=== PATIENT | male | born 1945 | race Caucasian/White ===

== ENCOUNTER → 2016-11-07 | Outpatient (CLI) | payer OTHER, MEDICARE ==
[~2016-11-07] MED LIST: FURO80TA63 PO; GLC500 PO; MODA1TAB PO; SPIR50TA2 PO; [UNRECOGNIZED DRUG - OTHER]
[2016-11-07 13:31] LABS: ESTIMATED AVERAGE GLUCOSE 160 mg/dl; HA1C FLAG Normal (Normal)
[2016-11-07 13:37] LABS: ALKALINE PHOSPHATASE 60 U/L (45-117); ALT/SGPT 83 U/L (12-78); AST/SGOT 53 U/L (15-37); BLOOD UREA NITROGEN 23 mg/dl (7-18); BUN/CREATININE RATIO 16.5 (10-20); CARBON DIOXIDE 27 mmol/L (21-32); CHLORIDE 106 mmol/L (98-107); GLUCOSE 173 mg/dl (70-99); HDL CHOLESTEROL 35 mg/dl; POTASSIUM 4.1 mmol/L (3.5-5.1); SODIUM 141 mmol/L (136-145)
[2016-11-07 13:39] LABS: CHOLESTEROL 137 mg/dl (0-200); CHOLESTEROL/HDL RATIO 3.9; LDL CHOLESTEROL CALCULATED 59 mg/dl; TRIGLYCERIDES 215 mg/dl (0-150); VERY LOW DENSITY LIPOPROT CALC 43 mg/dl
[2016-11-07 13:55] LABS: RATIO 6.2 mcg/mg (0-30.0)
== END | disposition home or self-care (01) ==
LOC: C.LABPVFM 08:24
PROVIDERS: ATTEND Family Medicine
DX: E55.9 Vitamin D deficiency, unspecified (principal); I10 Essential (primary) hypertension; R74.8 Abnormal levels of other serum enzymes; E11.9 Type 2 diabetes mellitus without complications

== ENCOUNTER → 2016-11-17 | Outpatient (CLI) | payer OTHER, MEDICARE ==
--- NOTE | 2016-11-17 10:43 | DIAGNOSTIC IMAGING REPORT ---
ULTRASOUND RIGHT UPPER QUADRANT ABDOMEN CLINICAL HISTORY: Elevated hepatic transaminases. COMPARISON STUDY: Abdominal ultrasound dated 09/03/09. TECHNIQUE: Real-time, grayscale, and color flow sonography of the right upper quadrant of the abdomen was performed. Images are reviewed in the transverse and longitudinal planes. FINDINGS: Liver: The liver is enlarged and demonstrates heterogeneously increased echotexture consistent with severe hepatic steatosis. Note that this degrades acoustic penetration of the liver. Foci of fatty sparing are seen adjacent to gallbladder fossa. There is no intrahepatic biliary ductal dilatation. The main portal vein is patent. Gallbladder: The gallbladder is normal in appearance. No gallstones are identified. There is no gallbladder wall thickening or pericholecystic fluid. A sonographic Olea's sign is reportedly absent. The common bile duct measures up to 0.4 cm in diameter. Pancreas: Visualized portions of the pancreatic head and body are normal in appearance. Right kidney: Survey images of the right kidney demonstrate normal size and echotexture. There is no hydronephrosis. Ascites: None. IMPRESSION: 1. Hepatomegaly and severe hepatic steatosis. 2. No gallstones are identified. Electronically signed by: Samm Holly M.D. 11/17/2016 10:41 AM Dictated Date/Time: 11/17/2016 10:40 AM
== END | disposition home or self-care (01) ==
LOC: C.ULTR 09:46
PROVIDERS: ATTEND Family Medicine
DX: R74.8 Abnormal levels of other serum enzymes (principal)

== ENCOUNTER → 2016-12-12 | Outpatient (CLI) | payer OTHER, MEDICARE ==
--- NOTE | 2016-12-12 10:06 | DIAGNOSTIC IMAGING REPORT ---
CHEST CT WITHOUT CONTRAST CT DOSE: 724.51 mGy.cm HISTORY: Lung nodule R91.1 Pulmonary nodule, left chest no contrast in 6 [id number] TECHNIQUE: Multiaxial CT images of the chest were performed without contrast. COMPARISON: 03/24/2016 FINDINGS: The lungs are clear. The mediastinal vascular structures are within normal limits. No mediastinal or hilar lymphadenopathy. No pleural effusion or pneumothorax. Limited views of the upper abdomen demonstrate a normal liver and spleen. On the micron nodularity seen bilaterally is nonprogressive and stable. There are no new or interval nodules. IMPRESSION: Stable bilateral micronodularity. No new or progressive lesions. Follow-up per Fleischner criteria. Please refer to below summary of Fleischner criteria recommendations for follow-up of incidental CT nodules (Janny Conrad, Guidelines for management of small pulmonary nodules detected on CT scans: A statement from the Fleischner Society, Radiology 237: [phone].) SOLID NODULES Solitary nodule size: <6 mm * low risk patients: no follow-up needed * high risk patients: optional CT at 12 months Solitary nodule size: 6-8 mm * low risk patients: follow-up at 6-12 months, then consider further follow-up at 18-24 months * high risk patients: initial follow-up CT at 6-12 months and then at 18-24 months if no change Solitary nodule size: >8 mm * either low or high risk patients - consider follow-up CT at 3 months, and/or CT-PET, and/or biopsy Multiple nodules size: <6 mm * low risk patients: no routine follow-up * high risk patients: optional CT at 12 months Multiple nodules size: 6-8 mm * low risk patients: follow-up at 3-6 months, then consider further follow-up at 18-24 months * high risk patients: follow-up at 3-6 months, then at 18-24 months if no change Multiple nodules size: >8 mm * low risk patients: follow-up at 3-6 months, then consider further follow-up at 18-24 months * high risk patients: follow-up at 3-6 months, then at 18-24 months if no change Note: newly detected indeterminate nodule in persons 35 years of age or older. * Low risk patients: minimal or absent history of smoking and/or other known risk factors * high risk patients: history of smoking or of other known risk factors (e.g. first degree relative with lung cancer, or exposure to asbestos, radon, uranium) * if a nodule up to 8 mm is partly solid or is ground glass further follow-up is required after 24 months to exclude possible slow growing adenocarcinoma (YURI) SUBSOIL NODULES Solitary pure ground-glass nodule * nodule size <6 mm - no CT follow-up required * nodule size >=6 mm - follow-up CT at 6-12 months, then every 2 years until 5 years Solitary part-solid nodule * nodule size <6 mm - no CT follow-up required * nodule size >=6 mm - follow-up CT at 3-6 months. If unchanged, and solid component remains <6 mm, then annual follow-up for 5 years Multiple subsolid nodules * nodule size <6 mm - follow-up CT at 3-6 months, consider further follow-up at 2 and 4 years if stable * nodule size >=6 mm - follow-up CT at 3-6 months, subsequent management based on the most suspicious nodule(s) Electronically signed by: Valeriy Diaz M.D. 12/12/2016 10:05 AM Dictated Date/Time: 12/12/2016 9:57 AM
== END | disposition home or self-care (01) ==
LOC: C.CTS 09:45
PROVIDERS: ATTEND Internal Medicine Pulmonary Disease
DX: R91.1 Solitary pulmonary nodule (principal)

== ENCOUNTER → 2016-12-16 | Outpatient (CLI) | payer OTHER, MEDICARE ==
[2016-12-16 16:18] LABS: FERRITIN 263.4 ng/ml (8.0-388.0)
== END | disposition home or self-care (01) ==
LOC: C.LAB1850 14:52
PROVIDERS: ATTEND Registered Nurse
DX: K76.0 Fatty (change of) liver, not elsewhere classified (principal)

== ENCOUNTER → 2017-01-23 | Outpatient (CLI) | payer OTHER, MEDICARE ==
[2017-01-23 13:07] LABS: BLOOD UREA NITROGEN 22 mg/dl (7-18)
== END | disposition home or self-care (01) ==
LOC: C.LABPVFM 07:38
PROVIDERS: ATTEND Psychiatry & Neurology Neurology
DX: E11.9 Type 2 diabetes mellitus without complications (principal); N18.3 Chronic kidney disease, stage 3 (moderate)

== ENCOUNTER → 2017-01-26 | Outpatient (CLI) | payer OTHER, MEDICARE ==
[~2017-01-26] MED LIST changes: +GADAVIST IV PRN
--- NOTE | 2017-01-26 12:47 | DIAGNOSTIC IMAGING REPORT ---
Brain MRI WITH AND WITHOUT CONTRAST HISTORY: Demyelinating disorder G35 Multiple [id number] TECHNIQUE: Multiplanar multisequence MRI of the brain was performed both before and after the intravenous administration of contrast. COMPARISON STUDY: 09/04/2014 FINDINGS: No significant foci of acute ischemic change based on diffusion-weighted images. Coronal FLAIR images demonstrate multiple foci of increased signal throughout both cerebral hemispheres as well as the right central pontine region. These findings have remains stable. The right central pontine focus is perhaps slightly diminished in terms of signal. No significant postcontrast enhancement. Ventricular system remains midline. There are no new or interval findings. IMPRESSION: Findings consistent with stable multiple sclerosis. No significant new or interval foci of abnormal signal are appreciated. No abnormal postcontrast enhancement Electronically signed by: Valeriy Diaz M.D. 01/26/2017 12:46 PM Dictated Date/Time: 01/26/2017 12:40 PM
== END | disposition home or self-care (01) ==
LOC: C.MRI 11:42
PROVIDERS: ATTEND Psychiatry & Neurology Neurology
DX: G35 Multiple sclerosis (principal)

== ENCOUNTER → 2017-03-19 | Outpatient (CLI) | payer OTHER, MEDICARE ==
[~2017-03-19] MED LIST changes: -GADAVIST IV PRN
[2017-03-20 06:33] LABS: ESTIMATED AVERAGE GLUCOSE 126 mg/dl; HA1C FLAG Normal (Normal)
== END | disposition home or self-care (01) ==
LOC: C.LABPVFM 11:27
PROVIDERS: ATTEND Family Medicine
DX: E11.9 Type 2 diabetes mellitus without complications (principal); R74.8 Abnormal levels of other serum enzymes

== ENCOUNTER → 2017-10-14 | Outpatient (CLI) | payer OTHER, MEDICARE ==
[2017-10-14 12:29] LABS: BASO % 0.8 %; BASO ABS # 0.06 K/uL (0-0.2); EOS % 4.7 %; EOS ABS # 0.35 K/uL (0-0.5); HEMATOCRIT 43.4 % (42-52); IG# 0.05 K/uL (0.00-0.02); LYMPH % 31.6 %; LYMPH ABS # 2.35 K/uL (1.2-3.4); MEAN CELL VOLUME 95.8 fL (80-100); MEAN CORPUSCULAR HEMOGLOBIN 33.1 pg (25-34); MEAN CORPUSCULAR HGB CONC 34.6 g/dl (32-36); MEAN PLATELET VOLUME 10.9 fL (7.4-10.4); MONO % 8.7 %; MONO ABS # 0.65 K/uL (0.11-0.59); NEUT % 53.5 %; NEUT ABS # 3.97 K/uL (1.4-6.5); PLATELET COUNT 210 K/uL (130-400); RED CELL DISTRIBUTION WIDTH CV 12.8 % (11.5-14.5); RED CELL DISTRIBUTION WIDTH SD 44.1 fL (36.4-46.3); WHITE BLOOD COUNT 7.43 K/uL (4.8-10.8)
[2017-10-14 12:56] LABS: HEMOGLOBIN A1C 6.8 % (4.5-5.6)
[2017-10-14 13:13] LABS: ALBUMIN 3.7 gm/dl (3.4-5.0); ALT/SGPT 95 U/L (12-78); AST/SGOT 53 U/L (15-37); BLOOD UREA NITROGEN 20 mg/dl (7-18); CALCIUM 9.8 mg/dl (8.5-10.1); CARBON DIOXIDE 27 mmol/L (21-32); CHOLESTEROL 146 mg/dl (0-200); CREATININE 1.55 mg/dl (0.60-1.40); GLUCOSE 143 mg/dl (70-99); POTASSIUM 3.8 mmol/L (3.5-5.1); SODIUM 137 mmol/L (136-145)
[2017-10-14 13:17] LABS: ALKALINE PHOSPHATASE 62 U/L (45-117); LDL CHOLESTEROL CALCULATED 60 mg/dl; TOTAL PROTEIN 7.6 gm/dl (6.4-8.2)
== END | disposition home or self-care (01) ==
LOC: C.LABPVFM 08:04
PROVIDERS: ATTEND Family Medicine
DX: E78.5 Hyperlipidemia, unspecified (principal); G35 Multiple sclerosis; I10 Essential (primary) hypertension; E11.9 Type 2 diabetes mellitus without complications; R74.8 Abnormal levels of other serum enzymes; M54.5 Low back pain; E55.9 Vitamin D deficiency, unspecified

== ENCOUNTER → 2018-03-18 | Outpatient (CLI) | payer OTHER, MEDICARE ==
[2018-03-18 13:11] LABS: ALBUMIN 3.7 gm/dl (3.4-5.0); ALKALINE PHOSPHATASE 61 U/L (45-117); ALT/SGPT 89 U/L (12-78); AST/SGOT 52 U/L (15-37); BLOOD UREA NITROGEN 17 mg/dl (7-18); CALCIUM 9.8 mg/dl (8.5-10.1); CARBON DIOXIDE 25 mmol/L (21-32); CREATININE 1.63 mg/dl (0.60-1.40); GLUCOSE 151 mg/dl (70-99); HEMOGLOBIN A1C 6.4 % (4.5-5.6); POTASSIUM 3.9 mmol/L (3.5-5.1); SODIUM 138 mmol/L (136-145); TOTAL PROTEIN 7.5 gm/dl (6.4-8.2)
== END | disposition home or self-care (01) ==
LOC: C.LABPVFM 07:24
PROVIDERS: ATTEND Family Medicine
DX: E04.1 Nontoxic single thyroid nodule (principal); G35 Multiple sclerosis; E11.22 Type 2 diabetes mellitus with diabetic chronic kidney disease; N18.3 Chronic kidney disease, stage 3 (moderate); K76.0 Fatty (change of) liver, not elsewhere classified; E55.9 Vitamin D deficiency, unspecified; R74.8 Abnormal levels of other serum enzymes

== ENCOUNTER → 2018-03-19 | Outpatient (CLI) | payer OTHER, MEDICARE ==
[2018-03-19 14:12] LABS: CREATININE RANDOM URINE 76.7 mg/dl
== END | disposition home or self-care (01) ==
LOC: C.LABPVFM 17:05
PROVIDERS: ATTEND Family Medicine
DX: E11.9 Type 2 diabetes mellitus without complications (principal); E55.9 Vitamin D deficiency, unspecified; G35 Multiple sclerosis; K76.0 Fatty (change of) liver, not elsewhere classified; N18.3 Chronic kidney disease, stage 3 (moderate); R74.8 Abnormal levels of other serum enzymes